=== PATIENT | male | born 1980 | race Caucasian/White ===

== ENCOUNTER 2023-01-20 14:44 | Emergency (ER) | payer BC, SELFPAY ==
--- NOTE | ~2023-01-20 | CT_ITS ---
. EXAMINATION: CT abdomen pelvis wo con DATE: 01/20/2023 15:55 INDICATION: Left flank pain TECHNIQUE: Computed tomography (CT) of the abdomen and pelvis was performed without intravenous contr ast. Automated exposure control and iterative reconstruction technique were employed. Exam dose: 138 8.33 mGy-cm total exam DLP. COMPARISON: None. FINDINGS: Peripheral 3.4 mm posterolateral left lower lobe pulmonary nodule. The lung bases are clear of infiltrate or consolidation. Heart size is within normal range. No pericardial or pleural effusio n. The liver, gallbladder, bile ducts, pancreas and pancreatic duct and spleen are unremarkable. Normal bilateral adrenal glands. Approximately 3.6 mm calculus is present at the very distal left ureter near the ureterovesical junct ion, with mild to moderate left hydroureteronephrosis. No other urinary tract calculus or right-sided hydroureteronephrosis. No renal space-occupying mass lesion is evident on this limited noncontrast e xamination. Normal caliber of the abdominal aorta. No intraperitoneal or retroperitoneal or pelvic mass lesion or adenopathy or ascites. Normal appendix. No bowel obstruction, bowel wall thickening, pneumatosis or intraperitoneal free air . The urinary bladder is relatively evacuated. The prostate gland is unremarkable. Bilateral L5 pars interarticularis defects. Mild retrolisthesis at L4-5. No suspicious osteolytic or osteoblastic lesions are noted. 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 Reviewed, dictated and finalized at [facility]. 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
[2023-01-20 14:48] VITALS: BP 148/98; PULSE 94; RESP 18; TEMP 36.7; O2SAT 100
[2023-01-20 15:12] LABS: Basophils Absolute Auto 0.1 K/mm3 (0.0-0.1); Basophils Percent Auto 0.4 % (0.2-1.2); Eosinophils Absolute Auto 0.1 K/mm3 (0-0.3); Eosinophils Percent Auto 0.6 % (0-4.4); Hematocrit 44.6 % (42.0-52.0); Immature Granulocyte Absolute 0.08 K/mm3 (0.00-0.031); Immature Granulocyte Percent A 0.7 % (0-0.5); Lymphocytes Absolute Auto 2.25 K/mm3 (0.9-3.2); Lymphocytes Percent Auto 19.7 % (18.3-44.2); Mean Corpuscular HGB Conc 33.6 g/dl (32-36); Mean Corpuscular Hemoglobin 28.2 pg (26-34); Mean Platelet Volume 10.2 fl (7.4-10.4); Monocytes Absolute Auto 0.7 K/mm3 (0.1-0.6); Monocytes Percent Auto 5.9 % (2.6-8.5); Neutrophils Absolute Auto 8.3 K/mm3 (1.3-6.7); Neutrophils Percent Auto 72.7 % (45.5-73.1); Platelet Count Result 293 k/mm3 (150-375); Red Blood Count 5.31 M/mm3 (4.6-6.20); Red Cell Distribution Width 12.1 % (11.5-14.5); White Blood Count 11.4 K/mm3 (4.5-10.0)
[2023-01-20 15:31] LABS: Albumin Level 4.7 g/dL (3.5-5.1); Alkaline Phosphatase 126 U/L (38-126); Anion Gap 19 mmol/L (8-16); Aspartate Amino Transferase 32 U/L (17-59); Blood Urea Nitrogen 19 mg/dL (9-20); Calcium 9.6 mg/dL (8.4-10.2); Carbon Dioxide 20 mmol/L (22-30); Chloride 97 mmol/L (98-107); Estimated CRCL calculation 122 ml/min; Estimated Glomerular Filt Rate > 60; Glucose 236 mg/dL (65-110); Potassium 3.8 mmol/L (3.4-5.0); Sodium 136 mmol/L (137-145)
--- NOTE | 2023-01-20 15:37 | ED.MALEGU ---
HPI - Male Genitourinary General Chief complaint: Urogenital-Male Stated complaint: left flank pain Time Seen by Provider: 01/20/23 15:27 History of Present Illness HPI Narrative: 42-year-old male presenting with sudden onset severe flank pain on the left that radiates down to his groin/testicle, accompanied by nausea, it is worst pain he has had, no history of kidney stones. Since this started, he has had difficulty urinating and states it only comes in trickles Related Data Allergies Allergy/AdvReac Type Severity Reaction Status Date / Time No Known Allergies Allergy Verified 01/20/23 15:37 Review of Systems Review of Systems: CONST: No fever. HEENT: No sore throat C/V: No chest pain RESP: No cough GI: Reports left flank pain, nausea : Dysuria M/S: No joint pain. SKIN: No rash. NEURO: [No headache or focal numbness or weakness] PSYCH: [No depression] Exam Narrative: EXAMINATION OF ORGAN SYSTEMS/BODY AREAS: Constitutional: Vital signs per nursing GENERAL: Clutching the bed rails, appearing quite in pain HEAD: Normal with no signs of head trauma. EYES: EOMI, conjunctiva normal ENT: Hearing grossly intact LUNGS: Nonlabored breathing. HEART: [Regular rate and rhythm] ABD: [Soft], slightly [tender to palpation] left abdomen/flank EXT: Normal range of motion SKIN: [No rashes or lesions.] NEURO: [Alert and oriented x 3. No gross focal sensory or strength deficits.] PSYCH: Normal affect Course Vital Signs Vital signs: Vital Signs Temperature 98.0 F 01/20/23 14:48 Pulse Rate 94 01/20/23 14:48 Respiratory Rate 18 01/20/23 14:48 Blood Pressure 148/98 H 01/20/23 14:48 Pulse Oximetry 100 01/20/23 14:48 Oxygen Delivery Room Air 01/20/23 14:48 Temperature 98.0 F 01/20/23 14:48 Pulse Rate 94 01/20/23 14:48 Respiratory Rate 18 01/20/23 14:48 Blood Pressure 148/98 H 01/20/23 14:48 Pulse Oximetry 100 01/20/23 14:48 Oxygen Delivery Room Air 01/20/23 14:48 MDM - Male Genitourinary MDM Narrative Medical decision making narrative: ED COURSE AND MEDICAL DECISION MAKIN-year-old presenting to the emergency department for acute flank pain, symptoms are concerning for likely renal colic versus pyelonephritis. Urinalysis is ordered. [Morphine 4 mg, Zofran 4mg] are ordered. CT scan of the abdomen/pelvis is ordered. Labs are remarkable for: Very minimally elevated WBC, ketones and blood in his urine. CT scan of the abdomen/pelvis is reviewed by myself and interpreted by radiology: 3.6 mm distal ureter stone. On reevaluation, the patient still having some pain. Toradol and Flomax provided. On reevaluation, patient is now essentially pain-free, he feels much better after the Toradol. I do feel he is likely to pass a stone on his own. Instructions for Flomax and Toradol provided and follow-up information for urology. CT did note a lung nodule which I explained to the patient needs follow-up with his primary care doctor. Patient is strongly advised to return to the emergency department for any increasing pain not improving with medications, persistent nausea vomiting, fevers or chills or for any other concerns. Patient is comfortable with this plan and was discharged in fair condition. Lab Data 01/20/23 15:01 01/20/23 15:01 Labs: Lab Results 01/20/23 01/20/23 Range/Units 15:01 15:41 WBC 11.4 H (4.5-10.0) K/mm3 RBC 5.31 (4.6-6.20) M/mm3 Hgb 15.0 (14.0-18.0) g/dL Hct 44.6 (42.0-52.0) % MCV 84.0 (80-100) fl MCH 28.2 (26-34) pg MCHC 33.6 (32-36) g/dl RDW 12.1 (11.5-14.5) % Plt Count 293 (150-375) k/mm3 MPV 10.2 (7.4-10.4) fl Immature Gran % (Auto) 0.7 H (0-0.5) % Neut % (Auto) 72.7 (45.5-73.1) % Lymph % (Auto) 19.7 (18.3-44.2) % [place] % (Auto) 5.9 (2.6-8.5) % Eos % (Auto) 0.6 (0-4.4) % Baso % (Auto) 0.4 (0.2-1.2) % Lymph # (Auto) 2.25 (0.9-3.2) K/mm3 [place] # (Auto
[2023-01-20 15:40] LABS: Alanine Aminotransferase 50 U/L (6-50)
[2023-01-20] MEDS: LACTATED RINGERS 1,000 ML 999 ML IV CONT (15:42)
[2023-01-20] MEDS: MORPHINE SULFATE (*CRX) 4 MG/ML INJ IV PUSH (15:42)
[2023-01-20] MEDS: ONDANSETRON INJ 4 MG/2 ML VIAL IV PUSH (15:42)
[2023-01-20 15:52] LABS: Appearance Urine Clear (Clear); Bacteria Urine None Seen /hpf; Bilirubin Urine Negative (Negative); Blood Urine 1+ (Negative); Color Urine Yellow (Yellow); Glucose Urine UA 3+ mg/dL (Negative); Ketones Urine 3+ mg/dL (Negative); Leukocyte Esterase Ur Negative LEU/UL (Negative); Nitrate Urine Negative (Negative); Non Pathogenic Casts 0-2; Protein Urine Trace mg/dL (Negative); Squamous Epithelial Cell Urine None seen /hpf (Few); WBC Urine 0-5 /hpf; pH Urine 5.5 (5.0-9.0)
[2023-01-20 16:07] LABS: Add Urine Microscopic? YES; Specific Grav Ur 1.037 (1.001-1.035)
[2023-01-20] MEDS: KETOROLAC 15 MG/ML VIAL (*BKC) IV PUSH (16:43)
[2023-01-20] MEDS: TAMSULOSIN HCL 0.4 MG CAPSULE PO (16:43)
[2023-01-20 17:12] VITALS: BP 137/89; PULSE 87; RESP 18; O2SAT 98
== END 2023-01-20 17:13 | disposition home or self-care (01) ==
PROVIDERS: Emergency Medicine; Emergency Provider Emergency Medicine
DX: N13.2 Hydronephrosis with renal and ureteral calculous obstruction (principal); R91.1 Solitary pulmonary nodule
CPT/HCPCS: 36415; 74176; 80053; 81001; 85025; 96361; 96374; 96375; 99284; A9270; J1885; J2270; J2405; J7120